=== PATIENT | male | born 1995 | race African-American/Black ===

== ENCOUNTER 2017-05-19 13:23 | Emergency (ER) | payer MEDICAID, OTHER ==
[~2017-05-19] VITALS: Ht 175.3 cm; Wt 73.0 kg
[~2017-05-19 13:23] MED LIST: PEPCID40 MG PO; ZOFRAN ODT4 MG ORAL
[2017-05-19 13:36] VITALS: BP 108/54
[2017-05-19] MEDS ORDERED: OMEPRAZOLE20 M2 ORAL (14:00)
[2017-05-19 14:07] VITALS: BP 108/54
--- NOTE | 2017-05-19 21:22 | Emergency Room Report ---
History of Present Illness General Chief Complaint: General Complaint Source: Patient Present Illness HPI The patient is a 21-year-old male with a history of GERD presenting for sore throat. He states that he feels a burning sensation in the throat as well as increased saliva in the mouth. He denies any burning sensation. No known provoking or alleviating factors. He denies any cough. He denies shortness of breath. He states that he was diagnosed with GERD 3 years prior but has not been taking medications. He denies any other symptoms including nausea, vomiting, fever, chills Allergies: Coded Allergies: No Known Allergies (Unverified , 08/04/15) Patient History Past Medical History: see triage record Pertinent Family History: none Reviewed Nursing Documentation: PMH: Agreed, PSxH: Agreed Nursing Documentation-PMH Hx Asthma: Yes Hx Diabetes: No - pre-diabetic Review of Systems All Other Systems: negative except mentioned in HPI Physical Exam Vital Signs Date Time Temp Pulse Resp B/P Pulse Ox O2 Delivery O2 Flow Rate FiO2 05/19/17 13:36 98.6 91 16 108/54 96 Room Air Sp02 EP Interpretation: reviewed, normal General Appearance: no apparent distress, alert, GCS 15, non-toxic Head: normocephalic, atraumatic Eyes: bilateral eye PERRL, bilateral eye normal inspection ENT: hearing grossly normal, normal pharynx, no angioedema, normal voice Neck: full range of motion, supple/symm/no masses Respiratory: chest non-tender, lungs clear, normal breath sounds, speaking full sentences Cardiovascular #1: regular rate, rhythm, no edema Genitourinary: normal inspection, no CVA tenderness Musculoskeletal: back normal, gait/station normal, normal range of motion, non- tender Neurologic: alert, oriented x3, responsive, motor strength/tone normal, sensory intact, speech normal Psychiatric: judgement/insight normal, memory normal, mood/affect normal, no suicidal/homicidal ideation Skin: normal color, no rash, warm/dry, well hydrated Medical Decision Making PA Attestation Dr. Connor is my supervising physician. Patient management was discussed with my supervising physician Diagnostic Impression: Primary Impression: GERD (gastroesophageal reflux disease) Qualified Codes: K21.9 - Gastro-esophageal reflux disease without esophagitis ER Course The patient is a 21-year-old male with a history of GERD presenting for sore throat. Differential diagnoses considered but not limited to: Gastroenteritis, gastritis , GERD,pharyngitis PE: Vitals within normal limits for no apparent distress HEENT exam is unremarkable. Oropharynx is patent. No erythema. No tonsillar edema Abdomen is soft and nontender. Lungs are clear to auscultation bilaterally RRR The patient will be discharged and treated for GERD with omeprazole. He is given dietary instructions. ER precautions given Last Vital Signs Date Time Temp Pulse Resp B/P Pulse Ox O2 Delivery O2 Flow Rate FiO2 05/19/17 14:07 98.6 16 108/54 96 Room Air 05/19/17 13:36 91 Status: improved Disposition: HOME, SELF-CARE Condition: Improved Scripts Omeprazole (OMEPRAZOLE) 20 Mg Capsule. 20 MG ORAL DAILY, #30 CAP Prov: SHIRA HARGROVE 05/19/17 Referrals: NON PHYSICIAN (PCP) Patient Instructions: Gastroesophageal Reflux Disease, Adult Additional Instructions: I discussed my findings with the patient. All questions and concerns have been answered. Treatment and medication compliance have been addressed. I advised the patient that they need to follow up with PMD in 3-5 days. Return to ED if symptoms worsen, new symptoms arise, or if needed for any reason. Patient verbalized understanding of discharge instructions. SHIRA HARGROVE May 19, 2017 21:22
== END 2017-05-19 14:07 | disposition home or self-care (01) ==
LOC: EMR 14:00
DX: K21.9 Gastro-esophageal reflux disease without esophagitis (principal); J45.909 Unspecified asthma, uncomplicated
CPT/HCPCS: 99283

== ENCOUNTER 2017-05-26 22:27 | Emergency (ER) | payer MEDICAID ==
[~2017-05-26] VITALS: Ht 175.3 cm; Wt 72.6 kg
[~2017-05-26 22:27] MED LIST changes: +OMEPRAZOLE20 M2 ORAL
[2017-05-26 22:48] VITALS: BP 122/65
[2017-05-26] MEDS ORDERED: Mylanta II UD 30ml ORAL ONE (23:00)
[2017-05-26] MEDS ORDERED: Lidocaine 2% Visc 15ml soln ORAL ONE (23:00)
[2017-05-26] MEDS ORDERED: LIDOCAINE VISC100 ML ORAL (23:46)
[2017-05-26] MEDS ORDERED: MAALOX MAXIMUM355 M1 PO (23:46)
--- NOTE | 2017-05-26 23:46 | Emergency Room Report ---
History of Present Illness General Chief Complaint: General Complaint Source: Patient Present Illness HPI Patient presents with 1 month of throat problems. He states he has GERD. Now tonight he believe a piece of gum he swallowed recently is stuck on the R side. He has been trying to scrape it out with his finger. No fevers. No cough. Some acid feelings in his chest and upper abdomen. He was seen here 05/19 with GERD. Omeprazole was prescribed. He did not have the FB feeling at that time. Able to swallow without difficulty, though some discomfort in area. No difficulty with breathing. No wheezing. No NVD, dysuria. He is anxious that there is something stuck in his throat. Smoker. Allergies: Coded Allergies: No Known Allergies (Unverified , 08/04/15) Patient History Past Medical History: see triage record Social History: Reports: smoking Reviewed Nursing Documentation: PMH: Agreed, PSxH: Agreed Nursing Documentation-PMH Hx Asthma: Yes Hx Gastrointestinal Problems: Yes - GERD Review of Systems All Other Systems: negative except mentioned in HPI Physical Exam Vital Signs Date Time Temp Pulse Resp B/P Pulse Ox O2 Delivery O2 Flow Rate FiO2 05/26/17 22:37 98.4 67 14 122/65 99 Room Air General Appearance: well appearing, no apparent distress Head: normocephalic, atraumatic Eyes: bilateral eye PERRL, bilateral eye Scleral Injection ENT: hearing grossly normal, normal voice, pharyngeal erythema Neck: full range of motion, supple Respiratory: lungs clear, normal breath sounds, no respiratory distress, speaking full sentences Cardiovascular #1: normal peripheral pulses, regular rate, rhythm Gastrointestinal: normal inspection, normal bowel sounds, non tender, soft, scaphoid Musculoskeletal: no calf tenderness Neurologic: alert, normal gait, grossly normal Psychiatric: anxious Skin: no rash Medical Decision Making Diagnostic Impression: Primary Impression: Foreign body sensation in throat Additional Impression: GERD (gastroesophageal reflux disease) Qualified Codes: K21.0 - Gastro-esophageal reflux disease with esophagitis ER Course Patient with GERD believe gum stuck in throat. DDx: abrasion, GERD, pharyngitis , FB, abscess. I can see down to where he is pointing and there is no foreign body (I could visualize vallecula which is lower than where he is pointing). This leaves possible abrasion or pharyngitis. There is lymphoid inflammation in the posterior pharynx. He is afebrile, therefore, abscess is less likely. Patient treated with viscous lidocaine and mylanta. Symptoms resolved. He next started to ask if I could see all the way down deep into his throat and chest. I stated I could not and that he needed ENT/GI referral. No medical emergency at this time. Patient stable for outpatient observation and treatment. Last Vital Signs Date Time Temp Pulse Resp B/P Pulse Ox O2 Delivery O2 Flow Rate FiO2 05/26/17 23:57 105/26/17 23:56 98.4 14 99 Room Air 05/26/17 22:37 67 Status: improved Disposition: HOME, SELF-CARE Condition: Improved Scripts Mag Hydrox/Al Hydrox/Simeth (MAALOX MAXIMUM STRENGTH SUSP) 355 Ml Oral.susp 30 ML PO Q6HR, #240 ML Prov: Omari Smith M.D. 05/26/17 Lidocaine HCl 2% Viscous (Lidocaine HCl 2% Viscous) 100 Ml Solution 10 ML ORAL QID Y for throat or stomach pain, #120 ML 1 Refill Prov: Omari Smith M.D. 05/26/17 Referrals: NON PHYSICIAN (PCP) Patient Instructions: Gastroesophageal Reflux Disease, Adult Additional Instructions: You need a GI specialist to look down your throat and in your stomach. There is no foreign body now. Continue the Omeperazole. No aspirin, advil, aleve, alkaselzer, peptobismol or alcohol. Tylenol and mylanta OK. Omari Smith M.D. May 26, 2017 23:46
[2017-05-26 23:56] VITALS: BP 122/65
[2017-05-26 23:57] VITALS: BP 1/1
== END 2017-05-26 23:55 | disposition home or self-care (01) ==
LOC: EMR 22:56
DX: R09.89 Other specified symptoms and signs involving the circulatory and respiratory systems (principal); K21.9 Gastro-esophageal reflux disease without esophagitis; J45.909 Unspecified asthma, uncomplicated; F17.200 Nicotine dependence, unspecified, uncomplicated
CPT/HCPCS: 99284

== ENCOUNTER 2017-05-31 20:39 | Emergency (ER) | payer MEDICAID ==
[~2017-05-31] VITALS: Ht 175.3 cm; Wt 64.9 kg
[~2017-05-31 20:39] MED LIST changes: +LIDOCAINE VISC100 ML ORAL; +MAALOX MAXIMUM355 M1 PO
--- NOTE | 2017-05-31 21:20 | Emergency Room Report ---
History of Present Illness General Chief Complaint: Sore Throat Source: Patient Present Illness HPI Is a 21-year-old male who presents with chief complaint of sore throat. Onset for about a week. ER he went to [facility] and was discharged home. He called in one immediate appointment to be seen but unable to get in until a week or 2 for now. He presents with chief when a sore throat again his been ongoing for a week. He thought he felt lump there. No nausea no vomiting. No fever or chills and no weight loss. No loss of voice. Denies any other complaint. Allergies: Coded Allergies: No Known Allergies (Unverified , 08/04/15) Patient History Past Medical History: see triage record, old chart reviewed Past Surgical History: none Pertinent Family History: none Social History: Denies: smoking Immunizations: other Reviewed Nursing Documentation: PMH: Agreed, PSxH: Agreed Nursing Documentation-PM Past Medical History: No History, Except For Hx Asthma: Yes Hx Gastrointestinal Problems: Yes - GERD Review of Systems Eye: Denies: blurred vision, eye pain ENT: Reports: throat pain, Denies: ear pain, nose congestion, throat swelling Respiratory: Denies: cough, shortness of breath Cardiovascular: Denies: chest pain, palpitations Gastrointestinal: Denies: abdominal pain, diarrhea, nausea, vomiting Musculoskeletal: Denies: back pain, joint pain Skin: Denies: rash Neurological: Denies: headache, numbness Endocrine: Denies: increased thirst, increased urine Hematologic/Lymphatic: Denies: easy bruising All Other Systems: negative except mentioned in HPI Physical Exam Vital Signs Date Time Temp Pulse Resp B/P Pulse Ox O2 Delivery O2 Flow Rate FiO2 05/31/17 20:54 98.2 90 16 136/78 100 Room Air vitals normal Sp02 EP Interpretation: reviewed, normal General Appearance: well appearing, no apparent distress, alert Head: normocephalic, atraumatic Eyes: bilateral eye EOMI, bilateral eye PERRL ENT: hearing grossly normal, normal pharynx Neck: full range of motion, supple, no meningismus Respiratory: chest non-tender, lungs clear, normal breath sounds Cardiovascular #1: regular rate, rhythm, no murmur Gastrointestinal: normal bowel sounds, non tender, no mass, no organomegaly, no bruit, non-distended Musculoskeletal: back normal, gait/station normal, normal range of motion Psychiatric: mood/affect normal Skin: warm/dry Medical Decision Making Diagnostic Impression: Primary Impression: Sore throat ER Course Present with sore throat. I see no evidence of acute infection. Is no trismus. I do not palpate any mass. Patient requests x-rays and labs. I explained that x-ray would not show any issue with his thyroid. Does not need emergent lab. His he does an outpatient. I suspect is all viral in nature. We 'll discharge home. Last Vital Signs Date Time Temp Pulse Resp B/P Pulse Ox O2 Delivery O2 Flow Rate FiO2 05/31/17 20:54 98.2 90 16 136/78 100 Room Air Status: unchanged Disposition: HOME, SELF-CARE Condition: Stable Patient Instructions: Sore Throat Additional Instructions: Followup with your DrElyssa in 7 days. Return if symptom worsen. RUBY SULLIVAN M.D. May 31, 2017 21:20
[2017-05-31 21:22] VITALS: BP 136/78
== END 2017-05-31 21:20 | disposition home or self-care (01) ==
LOC: EMR 21:15
DX: J02.9 Acute pharyngitis, unspecified (principal); J45.909 Unspecified asthma, uncomplicated; K21.9 Gastro-esophageal reflux disease without esophagitis
CPT/HCPCS: 99282

== ENCOUNTER 2018-05-27 12:10 | Emergency (ER) | payer MEDICAID ==
[~2018-05-27] VITALS: Ht 175.3 cm; Wt 63.5 kg
[2018-05-27 13:04] VITALS: BP 121/66
--- NOTE | 2018-05-27 13:14 | Emergency Room Report ---
History of Present Illness General Chief Complaint: General Complaint Present Illness HPI Patient is a 22-year-old male who presents today with with requested a work note. He states he is having abdominal pain and he went and saw his primary for this complaint and is currently being managed by his primary doctor. He states he forgot to get a work note from his primary doctor and is requesting a week off work. He denies any pain at this time and is refusing workup. Allergies: Coded Allergies: No Known Allergies (Unverified , 08/04/15) Patient History Reviewed Nursing Documentation: PMH: Agreed; PSxH: Agreed Nursing Documentation-PM Past Medical History: No History, Except For Hx Asthma: Yes Hx Gastrointestinal Problems: Yes - GERD Review of Systems Constitutional: Reports: other - work note All Other Systems: negative except mentioned in HPI Physical Exam Vital Signs Date Time Temp Pulse Resp B/P (MAP) Pulse Ox O2 Delivery O2 Flow Rate FiO2 05/27/18 12:54 98.3 57 18 121/66 98 Room Air 98.2 Sp02 EP Interpretation: reviewed, normal General Appearance: no apparent distress, alert, GCS 15, non-toxic Head: normocephalic, atraumatic Eyes: bilateral eye normal inspection, bilateral eye PERRL ENT: hearing grossly normal, normal pharynx, no angioedema, normal voice Neck: full range of motion, supple/symm/no masses Respiratory: chest non-tender, lungs clear, normal breath sounds, speaking full sentences Cardiovascular #1: regular rate, rhythm, no edema Cardiovascular #2: 2+ carotid (R), 2+ carotid (L), 2+ radial (R), 2+ radial (L) , 2+ dorsalis pedis (R), 2+ dorsalis pedis (L) Gastrointestinal: normal bowel sounds, non tender, soft, non-distended, no guarding, no rebound Rectal: deferred Genitourinary: normal inspection, no CVA tenderness Musculoskeletal: back normal, gait/station normal, normal range of motion, non- tender, calf tenderness Neurologic: alert, oriented x3, responsive, motor strength/tone normal, sensory intact, speech normal Psychiatric: judgement/insight normal, memory normal, mood/affect normal, no suicidal/homicidal ideation Reflexes: 3+ bicep (R), 3+ bicep (L), 3+ tricep (R), 3+ tricep (L), 3+ knee (R) , 3+ knee (L) Skin: normal color, no rash, warm/dry, well hydrated Lymphatic: no adenopathy Medical Decision Making PA Attestation My supervising physician tyson Gauthier Diagnostic Impression: Primary Impression: Nonspecific abdominal pain ER Course Patient refusing workup at this time stating his problem is being managed by his primary physician. He is requesting a work note. I explained to the patient we do not write extended workup to the ED but I'm giving him 2 days off work. Patient understands plan and is agreeable. Last Vital Signs Date Time Temp Pulse Resp B/P (MAP) Pulse Ox O2 Delivery O2 Flow Rate FiO2 05/27/18 12:54 98.3 57 18 121/66 98 Room Air 98.2 Status: improved Disposition: HOME, SELF-CARE Condition: Stable Departure Forms: Return to Work Return to Work in (Days): 2 Return to Work Date: May 29, 2018 Patient Instructions: Abdominal Pain, Adult, [id number] Sari Anderson May 27, 2018 13:14
[2018-05-27 13:25] VITALS: BP 121/66
== END 2018-05-27 13:15 | disposition home or self-care (01) ==
LOC: EMR 13:15
DX: R10.9 Unspecified abdominal pain (principal); J45.909 Unspecified asthma, uncomplicated; K21.9 Gastro-esophageal reflux disease without esophagitis
CPT/HCPCS: 99283

== ENCOUNTER 2019-08-18 10:17 | Emergency (ER) | payer SELFPAY ==
[~2019-08-18] VITALS: Ht 175.3 cm; Wt 63.5 kg
[2019-08-18] MEDS ORDERED: PRILOSEC OTC20 MG ORAL (10:23)
[2019-08-18 10:29] VITALS: BP 122/77
--- NOTE | 2019-08-18 10:29 | NUR ---
ED Nurse Note:pt. was off work due to URI, and came to get doctor's note to go back for work
[2019-08-18 11:06] VITALS: BP 122/77
--- NOTE | 2019-08-18 11:08 | Emergency Room Report ---
History of Present Illness General Chief Complaint: Upper Respiratory Illness Source: Patient Present Illness HPI 23-year-old male with remote history of asthma, GERD, presents with 5-day history of cough with clear yellow sputum production, denies fevers, pain complaints, shortness of breath, vomiting, any other complaints. She has tried over the counter meds and reports his symptoms are largely improving, but he needed a work note. Allergies: Coded Allergies: No Known Allergies (Unverified , 08/04/15) Patient History Past Medical History: see triage record Social History: Reports: smoking, drug use Reviewed Nursing Documentation: PMH: Agreed; PSxH: Agreed Nursing Documentation-PMH Past Medical History: No History, Except For Hx Asthma: Yes Hx Gastrointestinal Problems: Yes - GERD Review of Systems All Other Systems: negative except mentioned in HPI Physical Exam Vital Signs Date Time Temp Pulse Resp B/P (MAP) Pulse Ox O2 Delivery O2 Flow Rate FiO2 08/18/19 10:19 98.4 67 18 122/77 (92) 97 Room Air Sp02 EP Interpretation: reviewed, normal General Appearance: no apparent distress, alert, non-toxic Head: normocephalic Eyes: bilateral eye normal inspection, bilateral eye PERRL, bilateral eye EOMI ENT: normal ENT inspection, hearing grossly normal, normal pharynx, no angioedema, normal voice, moist mucus membranes Neck: normal inspection, full range of motion, supple, supple/symm/no masses Respiratory: chest non-tender, lungs clear, normal breath sounds, wheezing - Mild end expiratory wheezing occasional in bilateral bases, chest symmetrical, palpation of chest normal Cardiovascular #1: normal peripheral pulses, regular rate, rhythm Cardiovascular #2: 2+ radial (R), 2+ radial (L) Gastrointestinal: normal inspection, non tender, soft, no mass, no guarding, no rebound Rectal: deferred Genitourinary: normal inspection, no CVA tenderness Musculoskeletal: back normal, gait/station normal, normal range of motion, non- tender, no calf tenderness Neurologic: alert, responsive, gate tender III-XII nml as tested, motor strength/tone normal, sensory intact, speech normal Psychiatric: judgement/insight normal, memory normal, mood/affect normal Lymphatic: no adenopathy Medical Decision Making Diagnostic Impression: Primary Impression: Bronchitis ER Course Patient With URI symptoms, does have occasional wheezing, will dc with albuterol inhaler, PMD f/u. Differential diagnosis did include pneumonia, acute asthma exacerbation, laryngitis, pharyngitis, but suspect mild bronchitis. Will discharge. Last Vital Signs Date Time Temp Pulse Resp B/P (MAP) Pulse Ox O2 Delivery O2 Flow Rate FiO2 08/18/19 10:29 67 18 Room Air 08/18/19 10:29 98.4 122/77 97 Disposition: HOME, SELF-CARE Condition: Stable MERRICK WOOD M.D Aug 18, 2019 11:08
[2019-08-18] MEDS ORDERED: ALBUTEROL SULF8.5 GM INH (11:09)
== END 2019-08-18 11:25 | disposition home or self-care (01) ==
LOC: EMR 11:25
DX: J40 Bronchitis, not specified as acute or chronic (principal); K21.9 Gastro-esophageal reflux disease without esophagitis; F17.200 Nicotine dependence, unspecified, uncomplicated
CPT/HCPCS: 99281